=== PATIENT | female | born 1960 | race Caucasian/White ===

== ENCOUNTER 2020-01-10 07:42 | Day surgery (SDC) | payer BC ==
[2020-01-09 11:18] VITALS: BMI 27.1
[2020-01-10] MEDS ORDERED: ACETAMINOPHEN 1000 MG/100 ML VIAL (NON FORMULARY) IVPB ONE (10:07)
[2020-01-10] MEDS ORDERED: LIDOCAINE HCL 1%, 10 MG/ML (20ML VIAL) ONE (10:07)
[2020-01-10] MEDS ORDERED: IBUPROFEN 800 MG/8 ML IJ IVPB SCH (10:15)
[2020-01-10] MEDS ORDERED: DEXTROSE 5%-0.45% SALINE 1,000 ML IV SCH (10:15)
[2020-01-10] MEDS ORDERED: MIDAZOLAM HCL 2 MG/2 ML SINGLE DOSE VIAL ONE ×2 (10:43)
[2020-01-10] MEDS ORDERED: ceFAZolin SODIUM 1 GM VIAL ONE (10:48)
[2020-01-10] MEDS ORDERED: ceFAZolin SODIUM 1 GM VIAL IVPB ONE (11:11)
[2020-01-10] MEDS ORDERED: ONDANSETRON 4 MG/2 ML VIAL IVPUSH PRN (11:39)
[2020-01-10] MEDS ORDERED: oxyCODONE HCL 5 MG TABLET PO PRN (11:39)
[2020-01-10] MEDS ORDERED: PROMETHAZINE HCL 25 MG/1 ML VIAL IVPB PRN (11:39)
[2020-01-10] MEDS ORDERED: LACTATED RINGERS SOLUTION 1,000 ML IV SCH (11:45)
[2020-01-10] MEDS ORDERED: ACETAMINOPHEN INJECTION 100 ML IVPB ONE (12:00)
[2020-01-10 12:58] VITALS: TEMP 97.8
[2020-01-10 15:45] VITALS: BP 131/62; PULSE 73
--- NOTE | 2020-01-11 10:50 | OP ---
DATE OF OPERATION: 01/10/2020 PREOPERATIVE DIAGNOSIS: Urge urinary incontinence. POSTOPERATIVE DIAGNOSIS: Urge urinary incontinence. PROCEDURE: InterStim battery replacement. SURGEON: Gregory Wan MD ESTIMATED BLOOD LOSS: 5 mL. SPECIMEN: Old InterStim battery. FINDINGS: Lead is in proper position, with good toe deflection, anal saritha at low amplitude in all 4 leads. PREOPERATIVE INDICATIONS: The patient is a 59-year-old female with a history of urge urinary incontinence. She has been managed with a InterStim implant for several years and has done very well. Recently her battery , and she redeveloped her symptoms. She is here for battery replacement. DESCRIPTION OF PROCEDURE: Patient is brought to the OR, placed on the table in the prone position. All pressure points were protected. IV sedation was given as well as IV antibiotics. Timeout was performed. The back was prepped and draped. X-ray was done of the lead. The lead appeared to be in good position with a proper curvature in the S3 foramen on the left side. Incision was made over the existing battery site after injection of lidocaine, and the battery was removed. The lead was cleaned, and the lead was retested. All 4 leads showed good toe deflection, anal saritha at low amplitude. Based on this and the appearance of the lead on x-ray, it was decided to leave the lead in place and not to replace it. The new battery was connected to the wire and placed in the pocket. The pocket was closed in 2 layers. Impedances were checked and noted to be normal. The patient was then woken up. Rasta [id number]
--- NOTE | 2020-01-12 18:27 | PATH ---
Surgical Pathology Report Patient Name: MICKY LOPEZ Med. Rec. #: [id number] /Age/Gender: 1960 (Age: 59) / F Account: [id number] Location: [facility] [place] [facility] Taken: 01/10/2020 Received: 01/10/2020 Reported: 01/12/2020 Physicians: Gregory Wan M.D. Specimen(s) Received BATTERY Clinical History Urinary incontinence Final Diagnosis BATTERY, REMOVAL: CONSISTENT WITH A BATTERY. GROSS EXAMINATION ONLY. Electronically Signed Sher Chauhan M.D. Gross Description Received fresh labeled "battery," is a 4.8 x 4.3 x 0.7 cm magallanes metallic device, consistent with a battery. The specimen has the following inscription: "[employer] InterStim II SN: [id number]." No soft tissue is present. No sections are submitted, gross only. /01/11/2020 saudi/01/11/2020
== END 2020-01-10 15:15 | disposition home or self-care (01) ==
LOC: JASU-SURG 07:42
PROVIDERS: ATTEND Urology
PROC: 0JH70MZ Insertion of Stimulator Generator into Back Subcutaneous Tissue and Fascia, Open Approach (ICD-10-PCS; 2020-01-10)
PROC: 0JPT0MZ Removal of Stimulator Generator from Trunk Subcutaneous Tissue and Fascia, Open Approach (ICD-10-PCS; principal; 2020-01-10 10:00)
DX: T85.113A Breakdown (mechanical) of implanted electronic neurostimulator, generator, initial encounter (principal); N39.41 Urge incontinence
CPT/HCPCS: 64590; C1767; 76000-TC-FY; 88300-TC; 94760; J0131

== ENCOUNTER 2021-12-05 04:29 | Day surgery (SDC) | payer BC ==
[2021-12-04 11:09] VITALS: BMI 28.7
[2021-12-05] MEDS ORDERED: OXYTOCIN 10 UNITS/ML VIAL ONE (12:57)
[2021-12-05] MEDS ORDERED: VASOPRESSIN 20 UNITS/ML VIAL IV ONE (12:59)
[2021-12-05] MEDS ORDERED: ACETAMINOPHEN 1000 MG/100 ML BAG IVPB ONE (13:54)
[2021-12-05] MEDS ORDERED: DEXTROSE 5%-0.45% SALINE 1,000 ML IV SCH (14:00)
[2021-12-05] MEDS ORDERED: IBUPROFEN 800 MG/8 ML IJ IVPB SCH (14:00)
[2021-12-05] MEDS ORDERED: MIDAZOLAM HCL 2 MG/2 ML SINGLE DOSE VIAL ONE (14:19)
[2021-12-05] MEDS ORDERED: PROPOFOL 20 ML ONE (14:19)
[2021-12-05] MEDS ORDERED: oxyCODONE HCL 5 MG TABLET PO PRN (14:24)
[2021-12-05] MEDS ORDERED: ONDANSETRON 4 MG/2 ML VIAL IVPUSH PRN (14:24)
[2021-12-05] MEDS ORDERED: PROMETHAZINE HCL 25 MG/1 ML VIAL IVPUSH PRN (14:24)
[2021-12-05] MEDS ORDERED: LACTATED RINGERS SOLUTION 1,000 ML IV SCH (14:30)
[2021-12-05] MEDS ORDERED: ACETAMINOPHEN INJECTION 100 ML IVPB ONE (15:38)
[2021-12-05 19:34] VITALS: BP 135/69; PULSE 75; TEMP 97.7
== END 2021-12-05 18:55 | disposition home or self-care (01) ==
LOC: JASU-SURG 04:29
PROVIDERS: ATTEND Urology
PROC: 0TSD0ZZ Reposition Urethra, Open Approach (ICD-10-PCS; principal; 2021-12-05 14:30)
DX: N39.3 Stress incontinence (female) (male) (principal); N81.10 Cystocele, unspecified; N36.41 Hypermobility of urethra
CPT/HCPCS: 57288; C1771; 94760